=== PATIENT | female | born 1965 | race Caucasian/White ===

== ENCOUNTER 2016-09-01 14:42 | Emergency (ER) | payer MEDICAID ==
[2016-09-01] MEDS ORDERED: Ondansetron 4 MG/2 ML SDV IVPUSH ONE (14:52)
[2016-09-01] MEDS ORDERED: Sodium Chloride 0.9% 10 ML Syringe FLUSH PRN (14:52)
--- NOTE | 2016-09-01 15:17 | CT ---
Head CT Technique: Multiple axial sections through the brain were obtained. Intravenous contrast was not utilized. Comparison: Previous head CT study of 04/22/14. Findings: Ventricles along with basal cisterns and sulci over the convexities are within normal limits for the patient's age. No abnormal parenchymal densities are identified. No evidence of intracranial hemorrhage. No midline shift or mass effect is seen. Small focal area of extra-axial low density is seen posterior to the left cerebellar hemisphere which is normal variant. Bone window settings were reviewed which shows minimal mucosal thickening within the sphenoid sinus. Other visualized paranasal sinuses are clear. Mastoid sinuses and middle ear cavities are clear. No acute calvarial abnormality is seen. Impression: 1. Slight mucosal thickening within the sphenoid sinus. 2. No acute intracranial abnormality is identified. If patient's symptoms are persistent, MRI could then be considered. Diagnostic code #2
--- NOTE | 2016-09-01 15:52 | EDM.PDOC ---
ED HISTORY OF PRESENT ILLNESS - General Chief Complaint: Chest Pain Stated Complaint: CHEST PAIN Time Seen by Provider: 09/01/16 14:50 Source of Information: Reports: Patient History Limitations: Reports: No limitations - History of Present Illness INITIAL COMMENTS - FREE TEXT/NARRATIVE: The patient presents with chest pain and left arm pain that stared about 10:30 this morning when she woke up. She also is very weak. She is so tired she can' t open her eyes. She says it is generalized weakness and not one side over the other. She has no fever but she does have some chills. She has no cough. She has some nausea but no vomiting. The chest pain comes and goes. She has no history of [place]. Timing/Duration: Reports: Hour(s): (Since 10:30 this morning) Severity: moderate Location, General: Reports: chest Quality: Reports: Sharp Improves with: Reports: None Worsens with: Reports: None Associated Symptoms (General): Reports: chest pain, nausea/vomiting, shortness of breath. Denies: cough, fever/chills - Related Data Allergies/ADRs: Allergies Allergy/AdvReac Type Severity Reaction Status Date / Time shellfish derived Allergy Hives Verified 03/21/16 15:34 amoxicillin trihydrate AdvReac Diarrhea Verified 03/21/16 15:34 [From Augmentin] potassium clavulanate AdvReac Diarrhea Verified 03/21/16 15:34 [From Augmentin] Home Meds: Home Meds ClonazePAM [KlonoPIN] 2 mg PO BID 04/22/14 [History] FLUoxetine [PROzac] 20 mg PO DAILY 04/22/14 [History] Risperdal. 1 tab PO BEDTIME 04/22/14 [History] oxyCODONE HCl/Acetaminophen [oxyCODONE-Acetaminophen 5-325] 1 tab PO Q6H PRN [History] carBAMazepine [TEGretol] 100 mg PO DAILY 03/21/16 [History] Past Medical History HEENT History: Reports: Impaired vision Other HEENT History: glasses Cardiovascular History: Reports: Heart murmur, Hypertension Respiratory History: Reports: Other (see below) Other Respiratory History: current smoker Gastrointestinal History: Reports: Celiac disease, Hiatal hernia Genitourinary History: Reports: UTI, recurrent [employer] History: Reports: Other OB/BYN History: hysterectomy Musculoskeletal History: Reports: Back pain, chronic Psychiatric History: Reports: ADD, ADHD, Anxiety, Bipolar, Depression, Panic attack Other Psychiatric History: patient is seen at [facility] for medication regulation Hematologic History: Reports: Anemia, Iron deficiency - Infectious Disease History Infectious Disease History: Reports: Chicken pox Social & Family History - Family History Family Medical History: Noncontributory - Tobacco Use Smoking Status *Q: Current Every Day Smoker Years of Tobacco use: 35 Packs/Tins Daily: 0.5 - Caffeine Use Caffeine Use: Reports: Soda - Alcohol Use Days Per Week of Alcohol Use: 0 - Recreational Drug Use Recreational Drug Use: No ED ROS GENERAL - Review of Systems Review Of Systems: See Below Constitutional: Reports: weakness, fatigue. Denies: fever, chills HEENT: Reports: No symptoms Respiratory: Reports: shortness of breath Cardiovascular: Reports: Chest pain Endocrine: Reports: no symptoms GI/Abdominal: Reports: Nausea. Denies: Abdominal pain, Vomiting : Reports: no symptoms Musculoskeletal: Reports: no symptoms Skin: Reports: no symptoms ED EXAM, GENERAL - Physical Exam Exam: See Below Exam Limited By: No limitations General Appearance: alert, no apparent distress Ears: normal external exam Nose: normal inspection Head: atraumatic, normocephalic Neck: normal inspection Respiratory/Chest: no respiratory distress, lungs clear, normal breath sounds Cardiovascular: regular rate, rhythm, no edema, no murmur GI/Abdominal: soft, non tender, no organomegaly, no mass Back Exam: normal inspection Extremities: normal inspection EKG INTERPRETATION EKG Date: 09/01/16 Time: 14:55 Rhythm: NSR Rate (beats/min): 90 [place]: normal P-wave: present QRS: normal ST-T: normal QT: normal Course - Vital Signs Last Recorded V/S: Last Vital Signs Temp 98.1 F 09/01/16 14:54 Pulse 98 09/01/16 14:54 Resp 22 H 09/01/16 14:54 BP 174/85 H 09/01/16 14:54 Pulse Ox 93 L 09/01/16 15:19 - Orders/Labs/Meds Orders: Active Orders 24 hr Category Date Time Status Cardiac Monitoring [RC] . DIRECTED Care 09/01/16 14:53 Active EKG Documentation Completion [RC] STAT Care 09/01/16 14:53 Active Oxygen Therapy [RC] PRN Care 09/01/16 14:53 Active Peripheral IV Care [RC] . DIRECTED Care 09/01/16 14:53 Active Chest 1V Frontal [CR] Stat Exams 09/01/16 14:53 Taken Sodium Chloride 0.9% [Saline Flush] Med 09/01/16 14:52 Active 10 ml FLUSH ASDIRECTED PRN ED Antiemetic Medication Reflex [OM.PC] Stat Oth 09/01/16 14:53 Ordered Peripheral IV Insertion Adult [OM.PC] Stat Oth 09/01/16 14:52 Ordered Medication Orders Sodium Chloride (Saline Flush) 10 ml FLUSH ASDIRECTED PRN PRN Reason: Keep Vein Open Last Admin: 09/01/16 15:18 Dose: 10 ml Labs: Laboratory Tests 09/01/16 09/01/16 09/01/16 Range/Units 14:52 14:52 17:30 WBC 12.72 H (3.98-10.04) K/mm3 RBC 5.12 (3.98-5.22) M/mm3 Hgb 14.8 (11.2-15.7) gm/L Hct 45.1 H (34.1-44.9) % MCV 88.1 (79.4-94.8) fl MCH 28.9 (25.6-32.2) pg MCHC 32.8 (32.2-35.5) g/dl RDW Std Deviation 44.5 (36.4-46.3) fL Plt Count 417 H (182-369) K/mm3 MPV 9.5 (9.4-12.3) fl Neut % (Auto) 54.9 (34.0-71.1) % Lymph % (Auto) 31.4 (19.3-51.7) % [place] % (Auto) 10.5 (4.7-12.5) % Eos % (Auto) 2.6 (0.7-5.8) Baso % (Auto) 0.4 (0.1-1.2) % Neut # 6.97 H (1.56-6.13) K/mm3 Lymph # 4.00 H (1.18-3.74) K/mm3 [place] # 1.34 H (0.24-0.36) K/mm3 Eos # 0.33 (0.04-0.36) K/mm3 Baso # 0.05 (0.01-0.08) K/mm3 Sodium 136 (136-145) mEq/L Potassium 4.0 (3.5-5.1) mEq/L Chloride 101 (98-107) mEq/L Carbon Dioxide 25 (21-32) mEq/L Anion Gap 14.0 (5-15) BUN 7 (7-18) mg/dL Creatinine 0.9 (0.55-1.02) mg/dL Est Cr Clr Drug Dosing 57.83 mL/min Estimated GFR (MDRD) > 60 (>60) mL/min BUN/Creatinine Ratio 7.8 L (14-18) Glucose 111 H (74-106) mg/dL Calcium 8.9 (8.5-10.1) mg/dL Total Bilirubin 0.2 (0.2-1.0) mg/dL AST 19 (15-37) U/L ALT 38 (14-59) U/L Alkaline Phosphatase 113 (46-116) U/L Troponin I < 0.017 < 0.017 (0.00-0.056) ng/mL Total Protein 7.9 (6.4-8.2) g/dl Albumin 3.7 (3.4-5.0) g/dl Globulin 4.2 gm/dL Albumin/Globulin Ratio 0.9 L (1-2) Meds: Medications Generic Name Dose Route Start Last Admin Trade Name Freq PRN Reason Stop Dose Admin Sodium Chloride 10 ml 09/01/16 14:52 09/01/16 15:18 Saline Flush FLUSH 10 ml ASDIRECTED PRN Administration Keep Vein Open Discontinued Medications Generic Name Dose Route Start Last Admin Trade Name Freq PRN Reason Stop Dose Admin Aspirin 324 mg 09/01/16 17:15 09/01/16 17:27 Aspirin PO 09/01/16 17:16 324 mg ONETIME ONE Administration Sodium Chloride 1,000 mls @ 1,000 mls/hr 09/01/16 16:02 09/01/16 16:27 Normal Saline IV 09/01/16 17:01 1,000 mls/hr ONETIME ONE Administration Ondansetron HCl 4 mg 09/01/16 14:52 09/01/16 15:16 Zofran IVPUSH 09/01/16 14:53 4 mg ONETIME ONE Administration - Re-Assessments/Exams Free Text/Narrative Re-Assessment/Exam: 09/01/16 15:52 I ordered an IV saline lock, zofran 4mg IV, EKG, CXR, head CT and labs. Her EKG shows a NSR with no acute changes. Her CT shows nothing acute. Her CBC and CMP look good. Her troponin is negative. 09/01/16 18:11 Her repeat troponin is negative. I did give her some aspirin. She has a history of hiatal hernia and GERD. I will give her some pepcid here through the IV and have her take that for a few days. Departure - Departure Time of Disposition: 18:15 Disposition: Home, Self-Care 01 Condition: good Clinical Impression: Atypical chest pain, Generalized weakness Referrals: Janina Chin [Physician] - 1 Week Forms: ED Department Discharge Additional Instructions: Take pepcid 20mg daily for 5 days. Get plenty of rest. Please return if you are worse. - My Orders Last 24 Hours: My Active Orders 09/01/16 14:52 Sodium Chloride 0.9% [Saline Flush] 10 ml FLUSH ASDIRECTED PRN Peripheral IV Insertion Adult [OM.PC] Stat 09/01/16 14:53 Cardiac Monitoring [RC] . DIRECTED EKG Documentation Completion [RC] STAT Oxygen Therapy [RC] PRN Peripheral IV Care [RC] . DIRECTED Chest 1V Frontal [CR] Stat ED Antiemetic Medication Reflex [OM.PC] Stat - Assessment/Plan Last 24 Hours: My Active Orders 09/01/16 14:52 Sodium Chloride 0.9% [Saline Flush] 10 ml FLUSH ASDIRECTED PRN Peripheral IV Insertion Adult [OM.PC] Stat 09/01/16 14:53 Cardiac Monitoring [RC] . DIRECTED EKG Documentation Completion [RC] STAT Oxygen Therapy [RC] PRN Peripheral IV Care [RC] . DIRECTED Chest 1V Frontal [CR] Stat ED Antiemetic Medication Reflex [OM.PC] Stat
[2016-09-01] MEDS ORDERED: Sodium Chloride 0.9% 1,000 ML IV ONE (16:02)
[2016-09-01] MEDS ORDERED: Aspirin 81 MG Tab.Chew PO ONE (17:15)
[2016-09-01] MEDS ORDERED: Famotidine 20 MG/2 ML SDV IVPUSH ONE (18:14)
[2016-09-01 18:41] VITALS: BP 159/81
--- NOTE | 2016-09-02 07:36 | CR ---
Chest: Frontal view of the chest was obtained. Comparison: Previous chest x-ray of 03/21/16. Heart size and mediastinum are normal. Lungs are clear. Bony structures are grossly intact. Impression: 1. Nothing acute is identified on frontal chest x-ray. Diagnostic code #1
== END 2016-09-01 18:43 | disposition home or self-care (01) ==
LOC: JD.ED 14:42
DX: R07.89 Other chest pain (principal); R53.1 Weakness; R01.1 Cardiac murmur, unspecified; I10 Essential (primary) hypertension; K44.9 Diaphragmatic hernia without obstruction or gangrene; M54.9 Dorsalgia, unspecified; G89.29 Other chronic pain; K90.0 Celiac disease; K86.81 Exocrine pancreatic insufficiency; F41.8 Other specified anxiety disorders; F17.200 Nicotine dependence, unspecified, uncomplicated; Z88.8 Allergy status to other drugs, medicaments and biological substances; Z79.899 Other long term (current) drug therapy
CPT/HCPCS: 36415; 70450; 71010; 80053; 84484; 85025; 93005; 96361; 96374; 96375; 99285; A9270; J2405; J7040; J7050; 99284

== ENCOUNTER 2016-09-17 05:01 | Emergency (ER) | payer MEDICAID ==
[2016-09-17 05:08] VITALS: BP 113/72
[2016-09-17] MEDS ORDERED: HYDROmorphone 1 MG/ML Syringe IVPUSH ONE (05:32)
[2016-09-17] MEDS ORDERED: Ondansetron 4 MG/2 ML SDV IVPUSH ONE (05:32)
--- NOTE | 2016-09-17 05:39 | EDM.PDOC ---
ED HPI GENERAL MEDICAL PROBLEM - General Chief Complaint: Chest Pain Stated Complaint: CHEST PAIN Time Seen by Provider: 09/17/16 05:17 Source of Information: Reports: Patient, RN notes reviewed, Other (Friend) History Limitations: Reports: No limitations - History of Present Illness INITIAL COMMENTS - FREE TEXT/NARRATIVE: The patient states that she developed left-sided chest pain that radiates across her chest, up the left side of her neck, and into her left arm, yesterday afternoon, 09/16/2016. It is sharp in character and constant, although progressively getting worse. It is a pain. Not a discomfort. It is made worse with certain positions or movements. She states that she has some dyspnea with it, but no nausea, diaphoresis, or sense of impending doom. No prior similar symptoms. The patient states that she underwent a stress test just yesterday for chest pain that she experienced about 3 weeks ago, but that that pain then is different than the pain she is experiencing now. Left Chest Pain Score (Numeric/FACES): 10 - Related Data Allergies Allergy/AdvReac Type Severity Reaction Status Date / Time shellfish derived Allergy Hives Verified 09/17/16 05:06 amoxicillin trihydrate AdvReac Diarrhea Verified 09/17/16 05:06 [From Augmentin] potassium clavulanate AdvReac Diarrhea Verified 09/17/16 05:06 [From Augmentin] Home Meds: Home Meds ClonazePAM [KlonoPIN] 2 mg PO BID 04/22/14 [History] FLUoxetine [PROzac] 20 mg PO DAILY 04/22/14 [History] Risperdal. 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: Other OB/BYN History: hysterectomy Musculoskeletal History: Reports: Back pain, chronic Psychiatric History: Reports: ADD, ADHD, Anxiety, Bipolar, Depression, Panic attack Hematologic History: Reports: Anemia, Iron deficiency - Infectious Disease History Infectious Disease History: Reports: Chicken pox - Past Surgical History Female Surgical History: Reports: Hysterectomy Social & Family History - Family History Family Medical History: Noncontributory - Tobacco Use Smoking Status *Q: Current Every Day Smoker Years of Tobacco use: 30 Packs/Tins Daily: 0.5 - Caffeine Use Caffeine Use: Reports: Soda - Alcohol Use Alcohol Use History: No - Recreational Drug Use Recreational Drug Use: No - Living Situation & Occupation Living situation: Reports: (), other (friend) 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) ED ROS GENERAL - Review of Systems Review Of Systems: See Below Constitutional: Reports: no symptoms HEENT: Reports: No symptoms Respiratory: Reports: No Symptoms Cardiovascular: Reports: Chest pain (around late July 2016) Endocrine: Reports: no symptoms GI/Abdominal: Reports: No symptoms : Reports: no symptoms Musculoskeletal: Reports: no symptoms Skin: Reports: no symptoms Neurological: Reports: No Symptoms Psychiatric: Reports: No symptoms Hematologic/Lymphatic: Reports: no symptoms Immunologic: Reports: no symptoms ED EXAM, GENERAL - Physical Exam Exam: See Below Exam Limited By: Physical impairment General Appearance: alert, WD/WN, moderate distress Eye Exam: bilateral eye: EOMI, normal inspection Ears: normal external exam, hearing grossly normal Ear Exam: bilateral ear: auricle normal Nose: normal inspection, no blood Throat/Mouth: Normal inspection, Normal lips, Normal teeth, Normal gums, Normal oropharynx, Normal voice, No airway compromise Head: atraumatic, normocephalic Neck: normal inspection, full range of motion Respiratory/Chest: no respiratory distress, lungs clear, normal breath sounds, no accessory muscle use, chest non-tender Cardiovascular: normal peripheral pulses, regular rate, rhythm, no edema, no gallop, no JVD, no murmur, no rub Peripheral Pulses: 4+: radial (L), radial (R) GI/Abdominal: normal bowel sounds, soft, non tender, no organomegaly, no distention, no abnormal bruit, no mass Back Exam: normal inspection, full range of motion, NT Extremities: normal inspection, normal range of motion, non-tender, normal capillary refill, no pedal edema Neurological: alert, oriented, normal cognition, no motor/sensory deficits Psychiatric: normal affect Skin Exam: Warm, Dry, Intact, Normal color, No rash Lymphatic: no adenopathy EKG INTERPRETATION EKG Date: 09/17/16 Time: 05:13 Rhythm: NSR Rate (beats/min): 97 [place]: normal P-wave: present QRS: normal ST-T: normal QT: normal Comparison: no change (09/01/2016) Course - Vital Signs Last Recorded V/S: Last Vital Signs Temp 35.7 C 09/17/16 05:06 Pulse 107 H 09/17/16 05:06 Resp 16 09/17/16 05:06 BP 113/72 09/17/16 05:06 Pulse Ox 98 09/17/16 05:47 - Orders/Labs/Meds Orders: Active Orders 24 hr Category Date Time Status EKG Documentation Completion [RC] STAT Care 09/17/16 05:31 Active Chest 2V [CR] Stat Exams 09/17/16 05:31 Taken Sodium Chloride 0.9% [Normal Saline] 1,000 ml Med 09/17/16 05:45 Active IV ASDIRECTED Medication Orders Sodium Chloride (Normal Saline) 1,000 mls @ 150 mls/hr IV ASDIRECTED ARMANDO Last Admin: 09/17/16 05:40 Dose: 150 mls/hr Labs: Laboratory Tests 09/17/16 09/17/16 09/17/16 Range/Units 05:11 05:11 05:11 WBC 12.93 H (3.98-10.04) K/mm3 RBC 5.29 H (3.98-5.22) M/mm3 Hgb 15.3 (11.2-15.7) gm/L Hct 46.8 H (34.1-44.9) % MCV 88.5 (79.4-94.8) fl MCH 28.9 (25.6-32.2) pg MCHC 32.7 (32.2-35.5) g/dl RDW Std Deviation 46.6 H (36.4-46.3) fL Plt Count 439 H (182-369) K/mm3 MPV 10.1 (9.4-12.3) fl Neutrophils % (Manual) 46 (40-60) % Band Neutrophils % 0 (0-10) % Lymphocytes % (Manual) 49 H (20-40) % Atypical Lymphs % 0 % Monocytes % (Manual) 3 (2-10) % Eosinophils % (Manual) 2 (0.7-5.8) % Basophils % (Manual) 0 L (0.1-1.2) Platelet Estimate Adequate RBC Morph Comment Normal PT 10.3 (8.0-13.0) SECONDS INR 0.95 APTT 33 (22-36) SECONDS D-Dimer, Quantitative 0.33 (0.19-0.59) mg/L Sodium 137 (136-145) mEq/L Potassium 3.9 (3.5-5.1) mEq/L Chloride 102 (98-107) mEq/L Carbon Dioxide 24 (21-32) mEq/L Anion Gap 14.9 (5-15) BUN 7 (7-18) mg/dL Creatinine 1.0 (0.55-1.02) mg/dL Est Cr Clr Drug Dosing 52.05 mL/min Estimated GFR (MDRD) 58 (>60) mL/min BUN/Creatinine Ratio 7.0 L (14-18) Glucose 186 H (74-106) mg/dL Calcium 8.2 L (8.5-10.1) mg/dL Total Bilirubin 0.1 L (0.2-1.0) mg/dL AST 14 L (15-37) U/L ALT 31 (14-59) U/L Alkaline Phosphatase 113 (46-116) U/L Troponin I < 0.017 (0.00-0.056) ng/mL B-Natriuretic Peptide (0-100) pg/mL Total Protein 7.7 (6.4-8.2) g/dl Albumin 3.5 (3.4-5.0) g/dl Globulin 4.2 gm/dL Albumin/Globulin Ratio 0.8 L (1-2) 09/17/16 Range/Units 05:11 WBC (3.98-10.04) K/mm3 RBC (3.98-5.22) M/mm3 Hgb (11.2-15.7) gm/L Hct (34.1-44.9) % MCV (79.4-94.8) fl MCH (25.6-32.2) pg MCHC (32.2-35.5) g/dl RDW Std Deviation (36.4-46.3) fL Plt Count (182-369) K/mm3 MPV (9.4-12.3) fl Neutrophils % (Manual) (40-60) % Band Neutrophils % (0-10) % Lymphocytes % (Manual) (20-40) % Atypical Lymphs % % Monocytes % (Manual) (2-10) % Eosinophils % (Manual) (0.7-5.8) % Basophils % (Manual) (0.1-1.2) Platelet Estimate RBC Morph Comment PT (8.0-13.0) SECONDS INR APTT (22-36) SECONDS D-Dimer, Quantitative (0.19-0.59) mg/L Sodium (136-145) mEq/L Potassium (3.5-5.1) mEq/L Chloride (98-107) mEq/L Carbon Dioxide (21-32) mEq/L Anion Gap (5-15) BUN (7-18) mg/dL Creatinine (0.55-1.02) mg/dL Est Cr Clr Drug Dosing mL/min Estimated GFR (MDRD) (>60) mL/min BUN/Creatinine Ratio (14-18) Glucose (74-106) mg/dL Calcium (8.5-10.1) mg/dL Total Bilirubin (0.2-1.0) mg/dL AST (15-37) U/L ALT (14-59) U/L Alkaline Phosphatase (46-116) U/L Troponin I (0.00-0.056) ng/mL B-Natriuretic Peptide 91 (0-100) pg/mL Total Protein (6.4-8.2) g/dl Albumin (3.4-5.0) g/dl Globulin gm/dL Albumin/Globulin Ratio (1-2) Meds: Medications Generic Name Dose Route Start Last Admin Trade Name Freq PRN Reason Stop Dose Admin Sodium Chloride 1,000 mls @ 150 mls/hr 09/17/16 05:45 09/17/16 05:40 Normal Saline IV 150 mls/hr ASDIRECTED ARMANDO Administration Discontinued Medications Generic Name Dose Route Start Last Admin Trade Name Freq PRN Reason Stop Dose Admin Hydromorphone HCl 1 mg 09/17/16 05:32 09/17/16 05:42 Dilaudid IVPUSH 09/17/16 05:33 1 mg ONETIME ONE Administration Ondansetron HCl 4 mg 09/17/16 05:32 09/17/16 05:41 Zofran IVPUSH 09/17/16 05:33 4 mg ONETIME ONE Administration - Radiology Interpretation Free Text/Narrative:: Two-view chest radiograph appears to be grossly normal. Cardiac silhouette is within normal limits. No pulmonary vascular congestion. No pleural effusions. No focal infiltrate. No pneumothorax. Formal read per the Radiologist pending. - Re-Assessments/Exams Free Text/Narrative Re-Assessment/Exam: 09/17/16 06:38 Test results discussed with the patient and her friend. She is feeling and looking much better after the Dilaudid. Today's workup is unremarkable. There is no evidence of cardiac etiology to the patient's pain. Based on her history , I feel it is MOST LIKELY musculoskeletal in etiology. I will prescribe Norflex. Departure - Departure Time of Disposition: 06:40 Disposition: Home, Self-Care 01 Condition: good Clinical Impression: Musculoskeletal chest pain Referrals: Janina Chin [Primary Care Provider] - Forms: ED Department Discharge Additional Instructions: You were seen in the emergency room this morning for left sided chest pain. Workup in the ER included blood work, an ECG, and a chest x-ray. Your workup was unremarkable, with the exception of your blood sugar modestly elevated at 186. You have not suffered a heart attack, you do not have a blood clot in your lungs, and you do not have a collapsed lung. You have been started on the muscle relaxant Norflex. Take one tablet every 12 hours, as prescribed. We recommend that you followup with your primary care Physician, Dr. Chin, in regards to your elevated blood sugar, for further evaluation. We STRONGLY recommend that you consider quitting smoking. If any other problems, please do not hesitate to return to the ER. - My Orders Last 24 Hours: My Active Orders 09/17/16 05:31 EKG Documentation Completion [RC] STAT Chest 2V [CR] Stat 09/17/16 05:45 Sodium Chloride 0.9% [Normal Saline] 1,000 ml IV ASDIRECTED - Assessment/Plan Last 24 Hours: My Active Orders 09/17/16 05:31 EKG Documentation Completion [RC] STAT Chest 2V [CR] Stat 09/17/16 05:45 Sodium Chloride 0.9% [Normal Saline] 1,000 ml IV ASDIRECTED
[2016-09-17] MEDS ORDERED: Sodium Chloride 0.9% 1,000 ML IV SCH (05:45)
[2016-09-17] MEDS ORDERED: Orphenadrine 100 MG Tab.ER PO STA (06:38)
--- NOTE | 2016-09-17 08:18 | CR ---
Chest: Two views of the chest were obtained. Comparison: Previous chest x-ray of 09/01/16. Heart size and mediastinum are normal. Lung markings are mildly increased which appear chronic and stable from previous exam. No acute infiltrates are seen. Bony structures are unremarkable for the patient's age. Impression: 1. Lung markings are slightly increased believed to be stable from prior exam and therefore chronic. 2. Nothing acute is appreciated on two-view chest x-ray. Diagnostic code #1
== END 2016-09-17 06:54 | disposition home or self-care (01) ==
LOC: JD.ED 05:01
DX: R07.89 Other chest pain (principal); F17.210 Nicotine dependence, cigarettes, uncomplicated; I10 Essential (primary) hypertension; K21.9 Gastro-esophageal reflux disease without esophagitis; F41.0 Panic disorder [episodic paroxysmal anxiety]; F31.9 Bipolar disorder, unspecified; D50.9 Iron deficiency anemia, unspecified; Z90.710 Acquired absence of both cervix and uterus; Z79.899 Other long term (current) drug therapy; Z88.1 Allergy status to other antibiotic agents; Z91.030 Bee allergy status
CPT/HCPCS: 36415; 71020; 80053; 83880; 84484; 85025; 85379; 85610; 85730; 93005; 96361; 96374; 96375; 99285; A9270; J1170; J2405; J7040

== ENCOUNTER 2018-02-01 15:58 | Emergency (ER) | payer MEDICAID ==
[2018-02-01 16:11] VITALS: BP 119/81
[2018-02-01] MEDS ORDERED: Ondansetron 4 MG/2 ML SDV IVPUSH ONE (16:56)
[2018-02-01] MEDS ORDERED: diphenhydrAMINE 50 MG/ML SDV IM ONE (16:56)
[2018-02-01] MEDS ORDERED: Ondansetron 4 MG Tab.DIS PO ONE (17:11)
--- NOTE | 2018-02-01 19:08 | EDM.PDOC ---
ED HPI GENERAL MEDICAL PROBLEM - General Chief Complaint: Skin Complaint Stated Complaint: SKIN COMPLAINT Time Seen by Provider: 02/01/18 16:35 Source of Information: Reports: Patient History Limitations: Reports: No Limitations - History of Present Illness INITIAL COMMENTS - FREE TEXT/NARRATIVE: 52-year-old female presents for evaluation and treatment of pruritus and nausea. Patient reports that her symptoms started on . She is reporting pruritus to her entire body but is worse to the scalp neck, arms and legs. She has not appreciating any rash. She reports associated symptoms of fatigue lightheadedness. She is not sure she if has had any fevers. No ear pain, abdominal pain, rash, jaundice, cough or vomiting. She states she has not used any new detergent, soaps or lotions. She states she lives at home herself. She reports that she have a mouse infestation and did have to clean her cupboards recently. She does have chronic pain but has not appreciated any worsening pain. - Related Data Allergies Allergy/AdvReac Type Severity Reaction Status Date / Time shellfish derived Allergy Hives Verified 02/01/18 16:08 amoxicillin trihydrate AdvReac Diarrhea Verified 02/01/18 16:08 [From Augmentin] potassium clavulanate AdvReac Diarrhea Verified 02/01/18 16:08 [From Augmentin] Home Meds: Home Meds ClonazePAM [KlonoPIN] 2 mg PO BID 04/22/14 [History] FLUoxetine [PROzac] 20 mg PO DAILY 04/22/14 [History] Risperdal. 1 tab PO BEDTIME 04/22/14 [History] oxyCODONE HCl/Acetaminophen [oxyCODONE-Acetaminophen 5-325] 1 tab PO Q6H PRN [History] carBAMazepine [TEGretol] 100 mg PO DAILY 03/21/16 [History] Orphenadrine [Norflex] 1 tab PO Q12H #10 tab.er 09/17/16 [Rx] Ondansetron [Zofran ODT] 4 mg PO Q6H PRN #15 tab.dis 02/01/18 [Rx] predniSONE [Prednisone] 20 mg PO DAILY #10 tablet 02/01/18 [Rx] Past Medical History HEENT History: Reports: Impaired Vision Other HEENT History: glasses Cardiovascular History: Reports: Hypertension Respiratory History: Reports: Pneumothorax Other Respiratory History: current smoker Gastrointestinal History: Reports: GERD Genitourinary History: Reports: UTI, Recurrent 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 ADVISER History: hysterectomy Musculoskeletal History: Reports: Back Pain, Chronic Psychiatric History: Reports: ADD, ADHD, Anxiety, Bipolar, Depression, Panic Attack Other Psychiatric History: patient is seen at [facility] for medication regulation Hematologic History: Reports: Anemia, Iron Deficiency - Infectious Disease History Infectious Disease History: Reports: Chicken Pox - Past Surgical History Female Surgical History: Reports: Hysterectomy Social & Family History - Family History Family Medical History: Noncontributory - Tobacco Use Smoking Status *Q: Current Every Day Smoker Years of Tobacco use: 30 Packs/Tins Daily: 0.3 - Caffeine Use Caffeine Use: Reports: Soda - Living Situation & Occupation Living situation: Reports: , Other Occupation: Employed ED ROS GENERAL - Review of Systems Review Of Systems: See Below Constitutional: Reports: Fatigue. Denies: Fever HEENT: Denies: Ear Pain Respiratory: Denies: Cough GI/Abdominal: Reports: Nausea. Denies: Abdominal Pain, Vomiting Skin: Reports: Pruritis. Denies: Jaundice, Rash ED EXAM, SKIN/RASH Exam: See Below Exam Limited By: No Limitations General Appearance: Alert, WD/WN, No Apparent Distress Eye Exam: Bilateral Eye: Normal Inspection, PERRL Ears: Normal External Exam Nose: Normal Inspection Throat/Mouth: Normal Inspection, Normal Lips, Normal Oropharynx, Normal Voice, No Airway Compromise Neck: Normal Inspection Respiratory/Chest: No Respiratory Distress, Lungs Clear, Normal Breath Sounds Cardiovascular: Normal Peripheral Pulses, Regular Rate, Rhythm, No Murmur GI/Abdominal: Normal Bowel Sounds, Soft, Non-Tender, No Organomegaly Neurological: Alert, Oriented, Normal Cognition Psychiatric: Normal Affect, Normal Mood Skin: Warm, Dry, Normal Color, No Rash. No: Jaundice Course - Vital Signs Last Recorded V/S: Last Vital Signs Temp 97.4 F 02/01/18 16:08 Pulse 84 02/01/18 16:08 Resp BP 119/81 02/01/18 16:08 Pulse Ox 98 02/01/18 16:08 - Orders/Labs/Meds Labs: Laboratory Tests 02/01/18 02/01/18 Range/Units 17:25 17:25 WBC 14.76 H (3.98-10.04) K/mm3 RBC 4.71 (3.98-5.22) M/mm3 Hgb 13.1 (11.2-15.7) gm/L Hct 41.0 (34.1-44.9) % MCV 87.0 (79.4-94.8) fl MCH 27.8 (25.6-32.2) pg MCHC 32.0 L (32.2-35.5) g/dl RDW Std Deviation 44.1 (36.4-46.3) fL Plt Count 401 H (182-369) K/mm3 MPV 9.6 (9.4-12.3) fl Neut % (Auto) 69.1 (34.0-71.1) % Lymph % (Auto) 19.4 (19.3-51.7) % Kerr % (Auto) 7.5 (4.7-12.5) % Eos % (Auto) 3.6 (0.7-5.8) Baso % (Auto) 0.3 (0.1-1.2) % Neut # (Auto) 10.20 H (1.56-6.13) K/mm3 Lymph # (Auto) 2.86 (1.18-3.74) K/mm3 Kerr # (Auto) 1.11 H (0.24-0.36) K/mm3 Eos # (Auto) 0.53 H (0.04-0.36) K/mm3 Baso # (Auto) 0.04 (0.01-0.08) K/mm3 Sodium 138 (136-145) mEq/L Potassium 3.7 (3.5-5.1) mEq/L Chloride 103 (98-107) mEq/L Carbon Dioxide 28 (21-32) mEq/L Anion Gap 10.7 (5-15) BUN 18 (7-18) mg/dL Creatinine 1.2 H (0.55-1.02) mg/dL Est Cr Clr Drug Dosing 40.91 mL/min Estimated GFR (MDRD) 47 (>60) mL/min BUN/Creatinine Ratio 15.0 (14-18) Glucose 92 (74-106) mg/dL Calcium 8.6 (8.5-10.1) mg/dL Total Bilirubin 0.2 (0.2-1.0) mg/dL AST 20 (15-37) U/L ALT 30 (14-59) U/L Alkaline Phosphatase 100 (46-116) U/L Total Protein 7.7 (6.4-8.2) g/dl Albumin 3.4 (3.4-5.0) g/dl Globulin 4.3 gm/dL Albumin/Globulin Ratio 0.8 L (1-2) Meds: Medications Discontinued Medications Generic Name Dose Route Start Last Admin Trade Name Freq PRN Reason Stop Dose Admin Diphenhydramine HCl 50 mg 02/01/18 16:56 02/01/18 17:20 Benadryl IM 02/01/18 16:57 50 mg ONETIME ONE Administration Ondansetron HCl 4 mg 02/01/18 16:56 02/01/18 17:12 Zofran IVPUSH 02/01/18 16:57 Not Given ONETIME ONE Ondansetron HCl 4 mg 02/01/18 17:11 02/01/18 17:21 Zofran Odt PO 02/01/18 17:12 4 mg ONETIME ONE Administration - Re-Assessments/Exams Free Text/Narrative Re-Assessment/Exam: 02/01/18 19:08 Reviewed the labs with the patient. we'll have her take an antihistamine and do a short 5 day course of prednisone. Follow-up in the clinic later this week or early next week. Discharge instructions as documented. Departure - Departure Time of Disposition: 19:11 Disposition: Home, Self-Care 01 Condition: Good Clinical Impression: Pruritus - Discharge Information *PRESCRIPTION DRUG MONITORING PROGRAM REVIEWED*: No *COPY OF PRESCRIPTION DRUG MONITORING REPORT IN PATIENT MARY BETH: No Prescriptions: Ondansetron [Zofran ODT] 4 mg PO Q6H PRN #15 tab.dis PRN Reason: Nausea predniSONE [Prednisone] 20 mg PO DAILY #10 tablet Instructions: Pruritus Referrals: PCP,None [Primary Care Provider] - Forms: ED Department Discharge Additional Instructions: recommend starting antihistamine daily. Take Claritin, Zyrtec or Deisy as pack as directed. Take the prednisone as prescribed. 2 tabs of 40 mg daily for 5 days. Take in the am, take with food. Zofran 1 tab every 6-8 hours as needed for nausea. Make sure you're drinking plenty of fluids. Follow up with your primary care provider later this week or early next week for recheck of your symptoms. Recommend Dr. Roldan at the [facility]. Call [phone] to schedule with her. Please return to the ER if your symptoms change or worsen.
== END 2018-02-01 19:23 | disposition home or self-care (01) ==
LOC: JD.ED 15:58
DX: L29.9 Pruritus, unspecified (principal); I10 Essential (primary) hypertension; F17.210 Nicotine dependence, cigarettes, uncomplicated; Z88.1 Allergy status to other antibiotic agents; Z88.8 Allergy status to other drugs, medicaments and biological substances; Z91.013 Allergy to seafood; Z79.899 Other long term (current) drug therapy
CPT/HCPCS: 36415; 80053; 85025; 96372; 99283; A9270; J1200

== ENCOUNTER 2019-08-19 18:03 | Emergency (ER) | payer MEDICAID | END 2019-08-19 19:06 | disposition left against medical advice (07) | LOC: JD.ED 18:03 | DX: Z53.21 Procedure and treatment not carried out due to patient leaving prior to being seen by health care provider (principal) ==

== ENCOUNTER 2019-08-20 14:41 | Emergency (ER) | payer MEDICAID ==
[2019-08-20 14:59] VITALS: BP 173/100; PULSE 111
--- NOTE | 2019-08-20 15:27 | EDM.PDOC ---
ED HPI GENERAL MEDICAL PROBLEM - General Chief Complaint: Skin Complaint Stated Complaint: SORE ON FOOT Time Seen by Provider: 08/20/19 14:49 Source of Information: Reports: Patient, RN Notes Reviewed History Limitations: Reports: No Limitations - History of Present Illness INITIAL COMMENTS - FREE TEXT/NARRATIVE: Patient is a 54-year-old female who presents to the ED for evaluation of a lesion on her right foot. This is located on the medial portion of her lateral heel. She states she is having what she would call a numbing sensation to the both of her feet. But states that this sore on the inner portion of her foot is her main concern. She notes that the lesion is painful to touch, and she does not really know how long it is been there, but states it is been bothersome for at least a few weeks. She has tried Lotrimin and also triple antibiotic ointment, and it has not helped. She does state that she is prone to getting athlete's foot, and she thinks that it feels like that as well. She denies any punctures, wounds, or trauma to the area. She is not got any drainage from the lesion, nor is it itchy. Her primary care provider is Homero Abreu, and she was not able to get into his office. - Related Data Allergies Allergy/AdvReac Type Severity Reaction Status Date / Time shellfish derived Allergy Hives Verified 02/01/18 16:08 amoxicillin trihydrate AdvReac Diarrhea Verified 02/01/18 16:08 [From Augmentin] potassium clavulanate AdvReac Diarrhea Verified 02/01/18 16:08 [From Augmentin] Home Meds: Home Meds ClonazePAM [KlonoPIN] 2 mg PO BID 04/22/14 [History] FLUoxetine [PROzac] 20 mg PO DAILY 04/22/14 [History] Risperdal. 4 mg PO BEDTIME 04/22/14 [History] Albuterol Sulfate 1 applic IN ASDIRECTED 08/20/19 [History] Escitalopram Oxalate [Lexapro] 0 mg PO DAILY 08/20/19 [History] Losartan Potassium 1 tab PO DAILY 08/20/19 [History] Methylphenidate [Metadate ER] 20 mg PO BID 08/20/19 [History] buPROPion [Wellbutrin] 0 mg PO DAILY 02/21/20 [History] Past Medical History HEENT History: Reports: Impaired Vision Other HEENT History: glasses Cardiovascular History: Reports: Hypertension Respiratory History: Reports: Pneumothorax Other Respiratory History: current smoker Gastrointestinal History: Reports: GERD Genitourinary History: Reports: UTI, Recurrent 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 Musculoskeletal History: Reports: Back Pain, Chronic Psychiatric History: Reports: ADD, ADHD, Anxiety, Bipolar, Depression, Panic Attack Other Psychiatric History: patient is seen at [facility] for medication regulation Hematologic History: Reports: Anemia, Iron Deficiency - Infectious Disease History Infectious Disease History: Reports: Chicken Pox - Past Surgical History Female Surgical History: Reports: Hysterectomy Social & Family History - Family History Family Medical History: Noncontributory - Caffeine Use Caffeine Use: Reports: Soda - Living Situation & Occupation Living situation: Reports: , Other Occupation: Employed ED ROS GENERAL - Review of Systems Review Of Systems: See Below Constitutional: Denies: Fever, Chills Respiratory: Denies: Shortness of Breath Cardiovascular: Denies: Chest Pain GI/Abdominal: Denies: Abdominal Pain, Diarrhea, Nausea, Vomiting Skin: Reports: Lesions (round, raised hyperkeratotic lesion w central core.) Neurological: Reports: Numbness (to bilateral bottoms of feet) ED EXAM, SKIN/RASH Exam: See Below Exam Limited By: No Limitations General Appearance: Alert, WD/WN, No Apparent Distress Respiratory/Chest: No Respiratory Distress, Lungs Clear, Normal Breath Sounds, No Accessory Muscle Use, Chest Non-Tender Cardiovascular: Normal Peripheral Pulses, Regular Rate, Rhythm, No Murmur Peripheral Pulses: 3+: Dorsalis Pedis (L), Dorsalis Pedis (R) Extremities: Normal Inspection, Normal Capillary Refill Neurological: Alert, Oriented, Normal Cognition, No Motor/Sensory Deficits Psychiatric: Anxious Skin: Warm, Dry, Intact, Normal Color, No Rash, Other (Patient's skin is overly dry. The area in question is on her right medial foot at the transition of plantar skin. This is round, raised hyperkeratotic lesion w central core. The lesion is about the size of a pencil eraser.) Course - Vital Signs Last Recorded V/S: Last Vital Signs Temp 99.3 F 08/20/19 14:58 Pulse 111 H 08/20/19 14:58 Resp 20 08/20/19 14:58 BP 173/100 H 08/20/19 14:58 Pulse Ox 99 08/20/19 14:58 - Re-Assessments/Exams Free Text/Narrative Re-Assessment/Exam: 08/20/19 15:34 Patient presents to the ED for a lesion on her right medial foot. I did have Dr. Ocampo evaluate the area as well, I do believe that it is consistent clinically either with a wart versus corn versus callus, less likely a form of skin cancer. Patient unfortunately would not let us try to debride some of the hyperkeratosis off of the top of it, and she states she will just go see shadow on Friday for management. She refused any other treatment in the ER today. At this time I do not believe the patient is in any harm by being discharged with conservative recommendations. Departure - Departure Time of Disposition: 15:25 Disposition: Home, Self-Care 01 Condition: Fair Clinical Impression: Soft tissue lesion of foot - Discharge Information *PRESCRIPTION DRUG MONITORING PROGRAM REVIEWED*: No *COPY OF PRESCRIPTION DRUG MONITORING REPORT IN PATIENT MARY BETH: No Referrals: Homero Abreu PA-C [Primary Care Provider] - Forms: ED Department Discharge Additional Instructions: Your evaluated in the ER today regarding the lesion on your right foot. This was thought to be either a corn or a wart in nature, but this cannot be determined without taking some of the top layers of skin off to further evaluate this lesion. You may use Tylenol or ibuprofen every 6 hours for pain relief, and please follow-up with your primary care provider on Friday for further evaluation. You could try doing some corn pad type bandages to help keep the pressure off of the lesion as well. You can get these at any retailer. Please return to the ER however if your symptoms change or worsen. Sepsis Event Note - Evaluation Sepsis Screening Result: No Definite Risk - Focused Exam Vital Signs: Vital Signs Temp Pulse Resp BP Pulse Ox 08/20/19 14:58 99.3 F 111 H 20 173/100 H 99 Date Exam was Performed: 08/20/19 Time Exam was Performed: 15:27
== END 2019-08-20 15:30 | disposition home or self-care (01) ==
LOC: JD.ED 14:41
DX: L98.9 Disorder of the skin and subcutaneous tissue, unspecified (principal); I10 Essential (primary) hypertension; F31.9 Bipolar disorder, unspecified; F41.9 Anxiety disorder, unspecified; F32.9 Major depressive disorder, single episode, unspecified; K21.9 Gastro-esophageal reflux disease without esophagitis; Z79.899 Other long term (current) drug therapy; Z91.013 Allergy to seafood; Z88.1 Allergy status to other antibiotic agents
CPT/HCPCS: 99282

== ENCOUNTER 2022-06-10 17:23 | Emergency (ER) | payer SELFPAY | END 2022-06-10 20:13 | disposition left against medical advice (07) | LOC: JD.ED 17:23 | DX: Z53.21 Procedure and treatment not carried out due to patient leaving prior to being seen by health care provider (principal) ==

== ENCOUNTER 2022-06-12 15:22 | Emergency (ER) | payer MEDICAID ==
[2022-06-12] MEDS ORDERED: Sodium Chloride 0.9% 10 ML Syringe FLUSH PRN (15:48)
[2022-06-12] MEDS ORDERED: HYDROmorphone 1 MG/ML Syringe IVPUSH ONE (15:49)
[2022-06-12 16:46] LABS: ESTIMATED GFR 85 mL/min (>60)
[2022-06-12] MEDS ORDERED: Ketorolac 30 MG/ML SDV IVPUSH ONE (17:09)
[2022-06-12] MEDS ORDERED: HYDROmorphone 0.5 MG/0.5 ML Syringe IVPUSH ONE (18:55)
[2022-06-12 19:52] VITALS: BP 183/90; PULSE 77
== END 2022-06-12 19:30 | disposition home or self-care (01) ==
LOC: JD.ED 15:22
DX: I73.9 Peripheral vascular disease, unspecified (principal); I10 Essential (primary) hypertension; Z72.0 Tobacco use; Z91.013 Allergy to seafood; Z88.0 Allergy status to penicillin; Z79.899 Other long term (current) drug therapy
CPT/HCPCS: 36415; 80053; 82550; 83605; 85025; 96374; 96375; 96376; 99284; J1170; J1885; J3490

== ENCOUNTER 2022-06-21 10:10 | Emergency (ER) | payer MEDICARE, MEDICAID ==
[2022-06-21 10:37] VITALS: PULSE 79
[2022-06-21] MEDS ORDERED: Sodium Chloride 0.9% 10 ML Syringe FLUSH PRN (10:45)
[2022-06-21] MEDS ORDERED: HYDROmorphone 1 MG/ML Syringe IVPUSH ONE (10:47)
[2022-06-21] MEDS ORDERED: HYDROmorphone 0.5 MG/0.5 ML Syringe IVPUSH ONE (14:16)
[2022-06-21 18:02] VITALS: BP 150/72
== END 2022-06-21 15:00 | disposition home or self-care (01) ==
LOC: JD.ED 10:10
DX: R07.89 Other chest pain (principal); I73.9 Peripheral vascular disease, unspecified; I10 Essential (primary) hypertension; F17.210 Nicotine dependence, cigarettes, uncomplicated; Z91.013 Allergy to seafood; Z90.13 Acquired absence of bilateral breasts and nipples; Z88.0 Allergy status to penicillin; Z79.899 Other long term (current) drug therapy
CPT/HCPCS: 36415; 71045; 80053; 84484; 85025; 93005; 96374; 99285; J1170; J3490

== ENCOUNTER 2022-07-13 15:21 | Emergency (ER) | payer MEDICARE, MEDICAID ==
[2022-07-13] MEDS ORDERED: HYDROmorphone 1 MG/ML Syringe IM ONE (15:38)
[2022-07-13] MEDS ORDERED: HYDROmorphone 1 MG/ML Syringe IVPUSH STA ×2 (17:00→17:50)
[2022-07-13] MEDS ORDERED: Sodium Chloride 0.9% 10 ML Syringe FLUSH PRN (17:00)
[2022-07-13 18:05] VITALS: BP 100/79; PULSE 79
== END 2022-07-13 19:25 | disposition home or self-care (01) ==
LOC: JD.ED 15:21
DX: M54.50 Low back pain, unspecified (principal); G89.29 Other chronic pain; I10 Essential (primary) hypertension; K21.9 Gastro-esophageal reflux disease without esophagitis; Z91.013 Allergy to seafood; Z88.0 Allergy status to penicillin; Z79.899 Other long term (current) drug therapy
CPT/HCPCS: 81001; 96372; 96374; 96376; 99283; J1170

== ENCOUNTER 2022-08-06 11:52 | Emergency (ER) | payer MEDICARE, MEDICAID ==
[2022-08-06] MEDS ORDERED: HYDROmorphone 1 MG/ML Syringe IM ONE (12:29)
[2022-08-06] MEDS ORDERED: HYDROmorphone 1 MG/ML Syringe IVPUSH STA ×2 (12:37→13:18)
[2022-08-06] MEDS ORDERED: Sodium Chloride 0.9% 10 ML Syringe FLUSH PRN (12:37)
[2022-08-06 13:22] VITALS: BP 143/99; PULSE 98
[2022-08-06] MEDS ORDERED: Morphine 4 MG/ML Syringe IVPUSH ONE (14:11)
[2022-08-06] MEDS ORDERED: Ketorolac 30 MG/ML SDV IVPUSH ONE (14:11)
== END 2022-08-06 15:35 | disposition home or self-care (01) ==
LOC: JD.ED 11:52
DX: G89.29 Other chronic pain (principal); I10 Essential (primary) hypertension; K21.9 Gastro-esophageal reflux disease without esophagitis; F17.210 Nicotine dependence, cigarettes, uncomplicated; Z91.013 Allergy to seafood; Z88.0 Allergy status to penicillin; Z79.899 Other long term (current) drug therapy
CPT/HCPCS: 96374; 96375; 96376; 99283; J1170; J1885; J2270; J3490; 99284

== ENCOUNTER 2022-11-13 14:13 | Emergency (ER) | payer MEDICARE, MEDICAID ==
[2022-11-13 14:33] VITALS: BP 165/81; PULSE 94
== END 2022-11-13 15:42 | disposition home or self-care (01) ==
LOC: JD.ED 14:13
DX: G89.29 Other chronic pain (principal); M25.552 Pain in left hip; M79.602 Pain in left arm; I73.9 Peripheral vascular disease, unspecified; I10 Essential (primary) hypertension; Z91.013 Allergy to seafood; Z88.0 Allergy status to penicillin; Z79.899 Other long term (current) drug therapy
CPT/HCPCS: 99283

== ENCOUNTER 2023-03-07 14:36 | Emergency (ER) | payer MEDICARE, MEDICAID ==
[2023-03-07 15:28] VITALS: BP 178/97; PULSE 64
[2023-03-07] MEDS ORDERED: Lactated Ringers 1,000 ML IV ONE (15:57)
[2023-03-07] MEDS ORDERED: Ondansetron 4 MG/2 ML SDV IVPUSH ONE (15:57)
[2023-03-07 16:11] LABS: APPEARANCE,URINE CLEAR (Clear); BILIRUBIN,URINE NEGATIVE (Negative); COLOR,URINE YELLOW (Yellow); GLUCOSE,URINE NEGATIVE (Negative); KETONES,URINE NEGATIVE (Negative); LEUKOCYTE ESTERASE,URINE 2+ (Negative); NITRITE,URINE NEGATIVE (Negative); OCCULT BLOOD,URINE TRACE-LYSED (Negative); PH,URINE 6.5 (5.0-8.0); PROTEIN,URINE NEGATIVE (Negative); UROBILINOGEN,URINE 0.2 (0.2-1.0)
[2023-03-07 16:50] LABS: BACTERIA,URINE FEW /hpf (FEW); MUCUS,URINE FEW /hpf (FEW); RBC,URINE 0-5 /hpf (0-5); SQUAMOUS EPITHELIAL CELLS,UR 0-5 /hpf (0-5); WBC,URINE 20-30 /hpf (0-5)
== END 2023-03-07 16:16 | disposition left against medical advice (07) ==
LOC: JD.ED 14:36
DX: R19.7 Diarrhea, unspecified (principal); E78.00 Pure hypercholesterolemia, unspecified; I10 Essential (primary) hypertension; Z79.899 Other long term (current) drug therapy; Z88.1 Allergy status to other antibiotic agents; Z88.8 Allergy status to other drugs, medicaments and biological substances; Z91.013 Allergy to seafood
CPT/HCPCS: 81001; 99284

== ENCOUNTER 2023-06-10 11:12 | Emergency (ER) | payer MEDICARE, MEDICAID ==
[2023-06-10] MEDS ORDERED: risperiDONE 1 MG Tab PO ONE (11:54)
[2023-06-10] MEDS ORDERED: ClonazePAM 1 MG Tab PO ONE (11:54)
[2023-06-10 13:04] LABS: BARBITURATE SCREEN,URINE NEGATIVE (CUTOFF=200); BENZODIAZEPINES SCREEN,URINE NEGATIVE (CUTOFF=150); BUPRENORPHINE SCREEN,URINE NEGATIVE (CUTOFF=10); METHADONE SCREEN, URINE NEGATIVE (CUTOFF=200); METHAMPHETAMINES SCREEN, URINE NEGATIVE (CUTOFF=500); OXYCODONE SCREEN,URINE NEGATIVE (CUT0FF=100); THC SCREEN,URINE 20 NG/ML NEGATIVE (CUTOFF=50)
[2023-06-10 13:18] LABS: AMPHETAMINES SCREEN, URINE NEGATIVE (CUTOFF=500)
[2023-06-10 16:14] VITALS: BP 155/67; PULSE 69
== END 2023-06-10 15:12 | disposition home or self-care (01) ==
LOC: JD.ED 11:12
DX: F41.9 Anxiety disorder, unspecified (principal); Z76.0 Encounter for issue of repeat prescription; I10 Essential (primary) hypertension; E78.00 Pure hypercholesterolemia, unspecified; K21.9 Gastro-esophageal reflux disease without esophagitis; Z90.710 Acquired absence of both cervix and uterus; Z95.1 Presence of aortocoronary bypass graft; Z79.899 Other long term (current) drug therapy; Z91.013 Allergy to seafood; Z88.0 Allergy status to penicillin; Z88.1 Allergy status to other antibiotic agents
CPT/HCPCS: 80306; 99283; A9270